=== PATIENT | male | born 1980 | race African-American/Black ===

== ENCOUNTER 2019-11-16 13:18 | Emergency (ER) | payer MEDICAID ==
[~2019-11-16] VITALS: Ht 177.8 cm; Wt 77.6 kg
--- NOTE | 2019-11-16 13:55 | NUR ---
DR MONTELONGO AT BEDSIDE FOR EVAL.
[2019-11-16] MEDS ORDERED: MAG HYDROX/AL HYDROX/SIMETH 30 ML UDC ONE (14:00)
[2019-11-16] MEDS ORDERED: IBUPROFEN 600 MG TABLET PO ONE (14:01)
[2019-11-16] MEDS: MAG HYDROX/AL HYDROX/SIMETH 30 ML UDC PO ONE (14:04)
[2019-11-16] MEDS: IBUPROFEN 600 MG TABLET PO ONE (14:04)
--- NOTE | 2019-11-16 14:04 | NUR ---
PT REFUUSED ALL ORDERED MEDS. ERMD AWARE.
--- NOTE | 2019-11-16 14:14 | NUR ---
NEWS [employer]ODUCTION SUPERVISOR AT BEDSIDE FOR BLOOD DRAW.
--- NOTE | 2019-11-16 15:09 | NUR ---
Patient discharged to home in stable condition. Written and verbal after care instructions given. Patient verbalizes understanding of instruction.
[2019-11-16 15:10] VITALS: BP 132/84
== END 2019-11-16 15:11 | disposition home or self-care (01) ==
LOC: ER 13:21
DX: R00.2 Palpitations (principal); R07.89 Other chest pain
CPT/HCPCS: 36415; 84484-TC

== ENCOUNTER 2022-02-24 00:13 | Emergency (ER) | payer MEDICAID, OTHER ==
[~2022-02-24] VITALS: Ht 180.3 cm; Wt 80.7 kg
[2022-02-24 00:20] VITALS: BP 123/91
--- NOTE | 2022-02-24 00:52 | NUR ---
Patient discharged to home in stable condition. Written and verbal after care instructions given. Patient verbalizes understanding of instruction.
== END 2022-02-24 00:52 | disposition home or self-care (01) ==
LOC: ER 00:15
DX: S00.83XA Contusion of other part of head, initial encounter (principal); Z60.2 Problems related to living alone; W22.8XXA Striking against or struck by other objects, initial encounter; Y93.89 Activity, other specified; Y92.89 Other specified places as the place of occurrence of the external cause; Y99.8 Other external cause status

== ENCOUNTER 2022-09-30 00:46 | Emergency (ER) | payer OTHER ==
[~2022-09-30] VITALS: Ht 180.3 cm; Wt 79.4 kg
[2022-09-30 01:06] VITALS: BP 139/83
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
--- NOTE | 2022-09-30 01:17 | NUR ---
LSAT INSTRUCTOR AT PT'S BEDSIDE
--- NOTE | 2022-09-30 02:16 | NUR ---
Patient discharged to home in stable condition. Written and verbal after care instructions given. Patient verbalizes understanding of instruction. Pt ambulatory with a steady gait
== END 2022-09-30 02:17 | disposition home or self-care (01) ==
LOC: ER 00:47
DX: S60.041A Contusion of right ring finger without damage to nail, initial encounter (principal); S60.051A Contusion of right little finger without damage to nail, initial encounter; Z60.2 Problems related to living alone; X50.9XXA Other and unspecified overexertion or strenuous movements or postures, initial encounter; Y93.89 Activity, other specified; Y92.89 Other specified places as the place of occurrence of the external cause; Y99.8 Other external cause status
CPT/HCPCS: 73130-TC

== ENCOUNTER 2023-08-16 16:56 | Emergency (ER) | payer OTHER ==
[~2023-08-16] VITALS: Ht 180.3 cm; Wt 83.0 kg
[2023-08-16 17:19] VITALS: TEMP 98.2
[2023-08-16] MEDS ORDERED: ACETAMINOPHEN 650 MG/20.3 ML UDC PO ONE (18:00)
[2023-08-16] MEDS ORDERED: ACETAMINOPHEN ES 500 MG TABLET ONE (18:00)
[2023-08-16] MEDS ORDERED: KETOROLAC TROMETHAMINE INJ 30 MG/ML VIAL IM ONE (19:30)
[2023-08-16] MEDS ORDERED: ACET-2030 PO (19:32)
[2023-08-16] MEDS ORDERED: DIPH-530 PO (19:32)
[2023-08-16] MEDS ORDERED: IBUP-1955 PO (19:32)
[2023-08-16] MEDS ORDERED: KETOROLAC TROMETHAMINE INJ 30 MG/ML VIAL ONE (19:39)
[2023-08-16 19:47] VITALS: BP 121/88; O2SAT 99
== END 2023-08-16 19:48 | disposition home or self-care (01) ==
LOC: ER 17:06
DX: R51.9 Headache, unspecified (principal); Z79.899 Other long term (current) drug therapy; Z60.2 Problems related to living alone
CPT/HCPCS: 70450-TC; J1885